=== PATIENT | male | born 1960 | race Caucasian/White ===

== ENCOUNTER 2016-11-24 11:01 | Emergency (ER) | payer OTHER ==
--- NOTE | ~2016-11-24 | CR63 ---
[facility]. [facility] A Service of [facility] RADIOLOGY TEXT RESULTS PATIENT: RAY RASHEED LOCATION: SED : 58 UNIT #: [id number] AGE: [address]: Chayo Villanueva APRN SEX: M ORDER DR: [id number] [place] [id number] E MR#: [id number] Acc #: [id number] NAME: RAY RASHEED : 1960 SEX: M STUDY DATE/TIME: 11/24/2016 11:41 UNIT: SED ROOM: STUDY DESCRIPTION: CR Chest 2 View Attending Physician: Chayo Villanueva A.P.R.N. Ordering Physician: Chayo Middleton A.P.R.N. Primary Care Physician: Parker Valenzuela M.D. MEDICAL IMAGING REPORT This report is preliminary unless electronic signature is present. EXAM PA and lateral chest 2 views 11/24/2016 COMPARISON STUDIES Prior chest radiograph dated 11/28/2012 HISTORY COPD, right side chest pain for 3 days. FINDINGS There is no pneumothorax, consolidation or effusion. Extensive interstitial prominence is seen fairly similar to what was demonstrated on the prior study. Heart size is within normal limits. IMPRESSION Chronic interstitial changes. No consolidation, effusion, pneumothorax or other acute abnormality. Dictated by... Phill Madden M.D. THIS IS AN ELECTRONICALLY VERIFIED REPORT Phill Madden M.D. at 11/28/2016 8:45 AM JOO/jm TD: 11/24/2016 15:32 JOB #: [id number] MEDICAL IMAGING REPORT
--- NOTE | ~2016-11-24 | CT4 ---
[facility] A Service of [facility] RADIOLOGY TEXT RESULTS PATIENT: RAY RASHEED LOCATION: SED : 58 UNIT #: [id number] AGE: [address]: Chayo Villanueva APRN SEX: M ORDER DR: [id number] [place] [id number] E MR#: [id number] Acc #: [id number] NAME: RAY RASHEED : 1960 SEX: M STUDY DATE/TIME: 11/24/2016 13:02 UNIT: SED ROOM: STUDY DESCRIPTION: CT Abd and Pelv Wo Cont Attending Physician: Chayo Villanueva A.P.R.N. Ordering Physician: Chayo Middleton A.P.R.N. Primary Care Physician: Parker Valenzuela M.D. MEDICAL IMAGING REPORT This report is preliminary unless electronic signature is present. EXAM Abdomen and pelvis CT without contrast HISTORY Right-sided renal colic for the past 2 days. Symptoms began on the left and have moved to the right. TECHNIQUE Axial imaging was obtained without contrast. This CT exam was performed with one or more of the following radiation dose reduction techniques: automatic exposure control, adjustment of mA and/or kV according to patient size, and iterative reconstruction. FINDINGS The liver, spleen and pancreas are normal in size. No intrarenal stones are seen on either side. No adrenal masses are noted. The ureters are nondilated. The appendix is normal. No distended bowel loops are seen. There is no evidence of adenopathy. Diverticulosis is seen without evidence of diverticulitis. IMPRESSION No acute or inflammatory changes seen. No evidence of kidney stones or obstruction. Normal appendix. Dictated by... Ravin Rivas M.D. THIS IS AN ELECTRONICALLY VERIFIED REPORT Ravin Rivas M.D. at 11/25/2016 8:40 PM Ellie TD: 11/24/2016 16:18 [facility] A Service of [facility] RADIOLOGY TEXT RESULTS PATIENT: RAY RASHEED LOCATION: [facility] [place] : 58 UNIT #: [id number] AGE: [address]: Chayo Villanueva APRN SEX: M ORDER DR: JOB #: [id number] MEDICAL IMAGING REPORT
[~2016-11-24 11:01] MED LIST: ALBUTEROL17 GM INH; SYMBICORT80 INH
[2016-11-24 11:39] LABS: BASOPHIL# 0.3 X10e3 (0.0-0.3); BASOPHIL% 2.7 % (0.0-2.5); DIFF IND NO; EOSINOPHIL# 0.4 X10e3 (0.0-0.7); EOSINOPHIL% 3.2 % (0.0-7.0); HEMATOCRIT 44.8 % (38.0-50.0); HEMOGLOBIN 15.5 gm/dl (13.0-17.0); LYMPHOCYTE# 3.2 X10e3 (1.0-3.5); MEAN CELL VOLUME 93.7 FL (83-96); MEAN CORPUSCULAR HEMOGLOBIN 32.5 PG (28-34); MEAN CORPUSCULAR HGB CONC 34.6 g/dL (30-36); MEAN PLATELET VOLUME 9.1 FL (6.5-11.5); MONOCYTE% 8.3 % (3.0-12.0); NEUTROPHIL# 7.2 X10e3 (1.5-7.1); NEUTROPHIL% 59.8 % (40.0-75.0); PLATELET COUNT 200 X10e3 (140-420); RED BLOOD COUNT 4.78 X10e6 (3.90-5.60); WHITE BLOOD COUNT 12.1 X10e3 (4.0-10.5)
[2016-11-24 11:59] LABS: ALBUMIN SERUM 4.1 g/dL (3.5-5.0); ALKALINE PHOSPHATASE 65 U/L (32-92); ALT (SGPT) 12 U/L (10-40); AST (SGOT) 18 U/L (10-42); BILIRUBIN, DIRECT 0.1 mg/dL (0.0-0.2); BILIRUBIN,INDIRECT 0.6 mg/dL (0.0-0.9); BILIRUBIN,TOTAL 0.7 mg/dL (0.2-2.0); BLOOD UREA NITROGEN 9 mg/dL (9-23); CALCIUM SERUM 9.6 mg/dL (8.4-10.2); CARBON DIOXIDE 29 mmol/L (22-31); CHLORIDE 101 mmol/L (100-111); CREATININE SERUM 0.9 mg/dL (0.6-1.4); GLOM FILT RATE Estimated ABOVE60 mL/min (>60); GLUCOSE FASTING 117 mg/dL (70-110); POTASSIUM 3.9 mmol/L (3.5-5.1); PROTEIN TOTAL SERUM 7.9 g/dL (6.0-8.3); SODIUM 137 mmol/L (135-145)
[2016-11-24 12:32] LABS: URINE SOURCE CLEAN CATCH
[2016-11-24 12:37] LABS: URINE APPEARANCE CLEAR; URINE BILIRUBIN NEG (NEG); URINE BLOOD 1+ (NEG); URINE COLOR YELLOW; URINE GLUCOSE NEG (NORM); URINE KETONE NEG (NEG); URINE LEUKOCYTE ESTERASE NEG (NEG); URINE NITRATE NEG (NEG); URINE PROTEIN NEG (NEG); URINE UROBILINOGEN 0.2 MG/DL (NORM)
[2016-11-24 12:41] LABS: MICRO INDICATED? YES
[2016-11-24 13:00] LABS: CULTURE INDICATED? NO; URINE BACTERIA NEG (NEG); URINE WBC 0-2 /[HPF] (0-5)
== END 2016-11-24 14:29 | disposition home or self-care (01) ==
LOC: SED 11:01
PROVIDERS: Nurse Practitioner
DX: R07.81 Pleurodynia (principal); F17.200 Nicotine dependence, unspecified, uncomplicated; J44.9 Chronic obstructive pulmonary disease, unspecified
CPT/HCPCS: 36415; 71020; 74176; 80048; 80076; 81003; 85025; 99284

== ENCOUNTER 2017-05-27 12:39 | Emergency (ER) | payer OTHER ==
--- NOTE | ~2017-05-27 | CT4 ---
[facility]. [facility] A Service of [facility] RADIOLOGY TEXT RESULTS PATIENT: RAY RASHEED LOCATION: SED : 58 UNIT #: [id number] AGE: [address]: Lupillo Acosta MD SEX: M ORDER DR: [id number] [place] [address] [id number] E MR#: [id number] Acc #: [id number] NAME: RAY RASHEED : 1960 SEX: M STUDY DATE/TIME: 05/27/2017 14:35 UNIT: SED ROOM: STUDY DESCRIPTION: CT Abd and Pelv Wo Cont Attending Physician: Lupillo Acosta M.D. Ordering Physician: Lupillo Acosta M.D. Primary Care Physician: Parker Valenzuela M.D. MEDICAL IMAGING REPORT This report is preliminary unless electronic signature is present. EXAM Abdomen and pelvis CT without contrast, 05/27/2017. INDICATIONS 56-year-old male with right-sided abdominal pain, right lower quadrant pain, and elevated white count. Lower abdominal pain. History of hypertension and COPD. TECHNIQUE Noncontrasted abdomen and pelvis CT was performed. This CT exam was performed with one or more of the following radiation dose reduction techniques: automatic exposure control, adjustment of mA and/or kV according to patient size, and iterative reconstruction. COMPARISON 11/24/2016 FINDINGS Exam markedly degraded by noncontrasted technique. Included lung bases are clear. Reflux in the esophagus. Aorta demonstrates atherosclerotic change. There is free air in the abdomen. The etiology appears to be secondary to rupture of the sigmoid colon, probably related to perforated diverticulitis. Surgical referral recommended. Findings have been called to Dr. Acosta. At this point, there is no drainable fluid collection in the pelvis. No free fluid. There is free air extending from the pelvis into the inferior small bowel mesentery, into the right pericolic gutter, and adjacent to the liver. Spleen, adrenal glands, pancreas, gallbladder, liver, and kidneys are STS. [facility] A Service of [facility] RADIOLOGY TEXT RESULTS PATIENT: RASHEED,ANGLE LOCATION: SED : 58 UNIT #: [id number] AGE: [address]: Lupillo Acosta MD SEX: M ORDER DR: unremarkable. No adenopathy. CT PELVIS: There is stranding and wall thickening of the bladder. This may reflect secondary inflammatory change of the bladder from the perforated adjacent colon or intrinsic cystitis. Correlate clinically. There is no air within the bladder. The appendix is normal. Osseous structures intact. IMPRESSION 1. Abnormal examination; results have been called to Dr. Acosta at the time of this dictation. There is free air within the abdomen. The origin appears to be from perforation of the sigmoid colon, likely related to perforated diverticulitis. Surgical referral is recommended. At this point, there is no abscess or drainable fluid collection. 2. There is inflammatory change of the bladder that may relate to secondary changes from the adjacent colonic process or intrinsic cystitis. Correlate with urinalysis. 3. Appendix normal. Lung bases clear. STAT * RESULT Dictated by... Thiago Estevez M.D. THIS IS AN ELECTRONICALLY VERIFIED REPORT Thiago Estevez M.D. at 05/27/2017 4:53 PM Cyndie TD: 05/27/2017 15:05 JOB #: [id number] MEDICAL IMAGING REPORT Page 1 of 1
[2017-05-27] MEDS ORDERED: BLOOD PRESSURE MED (12:50)
[2017-05-27 13:24] LABS: BASOPHIL# 0.1 X10e3 (0-0.3); BASOPHIL% 0.5 % (0-2.5); EOSINOPHIL% 0.2 % (0.0-7.0); HEMATOCRIT 34.1 % (38.0-50.0); HEMOGLOBIN 12.2 gm/dL (13.0-16.0); LYMPHOCYTE# 1.1 X10e3 (1.0-3.5); LYMPHOCYTE% 7.6 % (17.0-45.0); MEAN CELL VOLUME 94.8 FL (83-96); MEAN CORPUSCULAR HEMOGLOBIN 33.9 PG (28-34); MEAN CORPUSCULAR HGB CONC 35.8 g/dL (30-36); MEAN PLATELET VOLUME 8.6 FL (6.5-11.5); MONOCYTE# 0.4 X10e3 (0-1.0); MONOCYTE% 2.9 % (3.0-12.0); NEUTROPHIL# 12.8 X10e3 (1.5-7.1); NEUTROPHIL% 88.8 % (40-75); PLATELET COUNT 138 X10e3 (140-420); RED CELL DISTRIBUTION WIDTH 13.9 % (11.0-15.5); WHITE BLOOD COUNT 14.4 X10e3 (4.0-10.5)
[2017-05-27 13:30] LABS: DIFF IND NO
[2017-05-27 14:11] LABS: ALBUMIN SERUM 3.5 g/dL (3.5-5.0); ALKALINE PHOSPHATASE 34 U/L (32-92); ALT (SGPT) 15 U/L (10-40); AMYLASE 43 U/L (0-46); AST (SGOT) 23 U/L (10-42); BILIRUBIN, DIRECT 0.1 mg/dL (0.0-0.2); BILIRUBIN,INDIRECT 0.4 mg/dL (0.0-0.9); BILIRUBIN,TOTAL 0.5 mg/dL (0.2-2.0); BLOOD UREA NITROGEN 42 mg/dL (9-23); BUN/CREATININE RATIO 19.09; CALCIUM SERUM 8.3 mg/dL (8.4-10.2); CARBON DIOXIDE 19 mmol/L (22-31); CHLORIDE 92 mmol/L (100-111); CREATININE SERUM 2.2 mg/dL (0.6-1.4); GLOM FILT RATE Estimated 32.1 mL/min (>60); GLUCOSE FASTING 150 mg/dL (70-110); LIPASE 20 U/L (22-51); POTASSIUM 4.1 mmol/L (3.5-5.1); PROTEIN TOTAL SERUM 7.7 g/dL (6.0-8.3)
[2017-05-27 14:22] LABS: SODIUM 122 mmol/L (135-145)
[2017-05-27 14:23] LABS: ALCOHOL BLOOD <5 mg/dL (0)
[2017-05-27 15:13] LABS: URINE SOURCE CLEAN CATCH
[2017-05-27 15:16] LABS: URINE APPEARANCE SL CLOUDY; URINE BILIRUBIN NEG (NEG); URINE BLOOD TRACE-INTACT (NEG); URINE COLOR YELLOW; URINE GLUCOSE NEG (NORM); URINE KETONE TRACE (NEG); URINE LEUKOCYTE ESTERASE NEG (NEG); URINE NITRATE NEG (NEG); URINE PROTEIN TRACE (NEG); URINE SPECIFIC GRAVITY 1.015 (1.003-1.035); URINE UROBILINOGEN 0.2 MG/DL (NORM)
[2017-05-27 15:20] LABS: MICRO INDICATED? YES
[2017-05-27 15:22] LABS: CULTURE INDICATED? NO; URINE BACTERIA NEG (NEG); URINE RBC 0-2 /[HPF] (0-2); URINE WBC 0-2 /[HPF] (0-5)
== END 2017-05-27 16:02 ==
LOC: SED 12:39
PROVIDERS: Emergency Medicine
DX: K57.20 Diverticulitis of large intestine with perforation and abscess without bleeding (principal); E87.1 Hypo-osmolality and hyponatremia; I10 Essential (primary) hypertension; J44.9 Chronic obstructive pulmonary disease, unspecified; Z87.891 Personal history of nicotine dependence
CPT/HCPCS: 36415; 74176; 80048; 80076; 81003; 82150; 83690; 85025; 94640; 96361; 96365; 96375; 96376; 99291; G0480; J2270; J2405; J2543